=== PATIENT | female | born 1995 ===

== ENCOUNTER 2021-08-14 12:18 | Inpatient (IN) | payer OTHER ==
[2021-08-14 14:10] LABS: ALBUMIN 2.9 g/dL (3.4-5.0); BILIRUBIN - TOTAL 0.3 mg/dL (0.2-1.0); BUN/CREAT RATIO (CALC) 7.8 RATIO; CREATININE 0.51 mg/dL (0.51-0.95); GLOBULIN (CALCULATION) 3.7 g/dL; POTASSIUM 3.6 mmol/L (3.5-5.1); TOTAL PROTEIN 6.6 g/dL (6.4-8.2)
[2021-08-14 14:25] LABS: HCT 36.7 % (37.0-47.0); HGB 12.9 g/dl (12.5-16.0); MCH 32.6 pg (25.0-31.0); MCHC 35.1 g/dL (32.0-36.0); MCV 92.7 fL (78.0-100.0); MPV 10.7 fL (6.0-9.5); RBC 3.96 M/uL (4.20-5.40); RDW 13.5 % (11.5-14.0); WBC 20.6 K/uL (4.0-10.5)
[2021-08-14 14:32] LABS: BILIRUBIN NEGATIVE (NEGATIVE); BLOOD NEGATIVE Ery/uL (NEGATIVE); CLARITY CLEAR (CLEAR); COLOR YELLOW (YELLOW); GLUCOSE (U) NORMAL (NORMAL); LEUKOCYTES TRACE Leu/uL (NEGATIVE); NITRITE NEGATIVE (NEGATIVE); PROTEIN NEGATIVE (NEGATIVE); UROBILINOGEN 0.2 mg/dL (0.2-1.0)
[2021-08-14 14:37] LABS: BACTERIA 1+
[2021-08-14 14:38] LABS: URINARY RBC RARE
[2021-08-14 18:03] LABS: AMPHETAMINES NEGATIVE (NEGATIVE); BARBITURATES NEGATIVE (NEGATIVE); ECSTASY (MDMA) NEGATIVE (NEGATIVE); MARIJUANA (THC) POSITIVE (NEGATIVE); METHADONE NEGATIVE (NEGATIVE); OPIATES NEGATIVE (NEGATIVE); OXYCODONE NEGATIVE (NEGATIVE)
[2021-08-15 07:19] LABS: INR 1.05 (0.9-1.2); PROTHROMBIN TIME 13.1 SECONDS (11.8-13.4); PTT 26.8 SECONDS (24.4-34.7)
[2021-08-15 07:24] LABS: HCT 30.1 % (37.0-47.0); HGB 10.5 g/dl (12.5-16.0); MCH 32.4 pg (25.0-31.0); MCHC 34.9 g/dL (32.0-36.0); MCV 92.9 fL (78.0-100.0); MPV 10.5 fL (6.0-9.5); PLT 234 K/uL (150-400); RBC 3.24 M/uL (4.20-5.40); RDW 13.2 % (11.5-14.0)
[2021-08-15 07:27] LABS: ALBUMIN 2.3 g/dL (3.4-5.0); BILIRUBIN - TOTAL 0.4 mg/dL (0.2-1.0); BUN/CREAT RATIO (CALC) 10.4 RATIO; CREATININE 0.48 mg/dL (0.51-0.95); GLOBULIN (CALCULATION) 3.3 g/dL; POTASSIUM 4.2 mmol/L (3.5-5.1); TOTAL PROTEIN 5.6 g/dL (6.4-8.2)
[2021-08-15 07:32] LABS: WBC 30.7 K/uL (4.0-10.5)
[2021-08-15 08:00] LABS: BASOPHIL 0.2 % (0-2); EOSINOPHIL 0 % (0-5); LYMPHOCYTE 6.2 % (15-48); MONOCYTE 3.4 % (0-12); NEUTROPHIL 88.7 % (41-80); NRBC 0
[2021-08-16 06:36] LABS: BASOPHIL 0.2 % (0-2); EOSINOPHIL 0.2 % (0-5); HCT 27.3 % (37.0-47.0); HGB 9.3 g/dl (12.5-16.0); LYMPHOCYTE 25.7 % (15-48); MCH 32.1 pg (25.0-31.0); MCHC 34.1 g/dL (32.0-36.0); MCV 94.1 fL (78.0-100.0); MONOCYTE 6.9 % (0-12); MPV 10.1 fL (6.0-9.5); NRBC 0; PLT 212 K/uL (150-400); RDW 13.4 % (11.5-14.0); WBC 22.1 K/uL (4.0-10.5)
== END 2021-08-17 11:50 | disposition home or self-care (01) | DRG 787 ==
LOC: FOD 12:18 → FOB 12:19 → FOD 14:34 → FOB 14:35
PROVIDERS: ADMIT Obstetrics & Gynecology
PROC: 10D00Z1 Extraction of Products of Conception, Low, Open Approach (ICD-10-PCS; principal; 2021-08-14 16:52)
DX: O42.013 Preterm premature rupture of membranes, onset of labor within 24 hours of rupture, third trimester (principal); D62 Acute posthemorrhagic anemia; O99.324 Drug use complicating childbirth; O99.12 Other diseases of the blood and blood-forming organs and certain disorders involving the immune mechanism complicating childbirth; Z37.0 Single live birth; Z3A.36 36 weeks gestation of pregnancy; Z20.822 Contact with and (suspected) exposure to COVID-19; O99.814 Abnormal glucose complicating childbirth; O99.344 Other mental disorders complicating childbirth; F41.9 Anxiety disorder, unspecified; O99.02 Anemia complicating childbirth; D50.9 Iron deficiency anemia, unspecified; O99.334 Smoking (tobacco) complicating childbirth; F17.200 Nicotine dependence, unspecified, uncomplicated; F12.10 Cannabis abuse, uncomplicated; D72.829 Elevated white blood cell count, unspecified
CPT/HCPCS: 36415; 80053; 80305; 81001; 82947; 84112; 85025; 85384; 85610; 85730; 86850; 86900; 86901; 87088; J0456; J0690; J0735; J1100; J1170; J1885; J2405; J2704; J2795; J3010; J7050; J7120; Q0162; U0002

== ENCOUNTER 2021-09-03 13:07 | Inpatient (IN) | payer OTHER ==
[2021-09-03 13:48] LABS: BILIRUBIN NEGATIVE (NEGATIVE); BLOOD 3+ Ery/uL (NEGATIVE); CLARITY HAZY (CLEAR); COLOR YELLOW (YELLOW); GLUCOSE (U) NORMAL (NORMAL); LEUKOCYTES TRACE Leu/uL (NEGATIVE); NITRITE NEGATIVE (NEGATIVE); PROTEIN TRACE (LOW) mg/dL (NEGATIVE); SPECIFIC GRAVITY 1.015 (1.001-1.030); UROBILINOGEN 0.2 mg/dL (0.2-1.0)
[2021-09-03 13:48] LABS: BASOPHIL 0.2 % (0-2); HCT 37.2 % (37.0-47.0); HGB 12.3 g/dl (12.5-16.0); LYMPHOCYTE 29.6 % (15-48); MCHC 33.1 g/dL (32.0-36.0); MCV 93.7 fL (78.0-100.0); MPV 9.5 fL (6.0-9.5); NEUTROPHIL 62.8 % (41-80); NRBC 0; PLT 395 K/uL (150-400); RBC 3.97 M/uL (4.20-5.40); WBC 12.1 K/uL (4.0-10.5)
[2021-09-03 14:05] LABS: BACTERIA 1+
[2021-09-03 14:32] LABS: CORONAVIRUS 2019 SARS-COV-2 NEGATIVE (NEGATIVE); INFLUENZA A NAA NEGATIVE (NEGATIVE)
[2021-09-03 14:50] LABS: ALBUMIN 3.3 g/dL (3.4-5.0); BILIRUBIN - TOTAL 0.5 mg/dL (0.2-1.0); BUN/CREAT RATIO (CALC) 6.8 RATIO; CREATININE 0.74 mg/dL (0.51-0.95); GLOBULIN (CALCULATION) 3.4 g/dL; POTASSIUM 3.4 mmol/L (3.5-5.1); TOTAL PROTEIN 6.7 g/dL (6.4-8.2)
[2021-09-03 14:59] LABS: INR 1.04 (0.9-1.2); PTT 30.1 SECONDS (24.4-34.7)
[2021-09-03 16:56] LABS: BILIRUBIN NEGATIVE (NEGATIVE); BLOOD NEGATIVE Ery/uL (NEGATIVE); CLARITY CLEAR (CLEAR); COLOR YELLOW (YELLOW); GLUCOSE (U) NORMAL (NORMAL); LEUKOCYTES NEGATIVE Leu/uL (NEGATIVE); NITRITE NEGATIVE (NEGATIVE); PROTEIN NEGATIVE (NEGATIVE); UROBILINOGEN 0.2 mg/dL (0.2-1.0)
[2021-09-03 17:17] LABS: URIC ACID 4.4 mg/dL (2.6-6.2)
[2021-09-03 17:17] LABS: PROTEIN:CREATININE 0.3 RATIO; URINE CREATININE 27.07 mg/dL (29.00-226.00); URINE TOTAL PROTEIN-RANDOM 8.2 mg/dL (<11.9)
== END 2021-09-03 19:38 | disposition home or self-care (01) | DRG 776 ==
LOC: FER 13:07 → FOB 16:24
PROVIDERS: Physician Assistant; ADMIT Obstetrics & Gynecology
DX: O14.95 Unspecified pre-eclampsia, complicating the puerperium (principal); O72.2 Delayed and secondary postpartum hemorrhage; Z20.822 Contact with and (suspected) exposure to COVID-19; Z86.711 Personal history of pulmonary embolism; Z86.718 Personal history of other venous thrombosis and embolism; Z28.310 Unvaccinated for COVID-19
CPT/HCPCS: 36415; 76830; 80053; 81001; 81003; 82570; 83615; 83880; 84156; 84443; 84550; 85025; 85610; 85730; 87088; 93970; J1200; J2270; J2405; J2765; U0002